=== PATIENT | female | born 1995 | race Caucasian/White ===

== ENCOUNTER 2019-01-21 09:34 | Emergency (ER) | payer SELFPAY ==
[2019-01-21] MEDS ORDERED: ONDANSETRON HCL INJ/PF 4 MG/2 ML SDV IV ONE (10:13)
[2019-01-21] MEDS ORDERED: NORMAL SALINE 1000 ML 1,000 ML IV ONE ×2 (10:13→11:04)
--- NOTE | 2019-01-21 10:15 | ER Document Report ---
ED Medical Screen (RME) - General Chief Complaint: Nausea/Vomiting Stated Complaint: VOMITING Time Seen by Provider: 01/21/19 09:52 TRAVEL OUTSIDE OF THE [place] IN LAST 30 DAYS: No - HPI Notes: 01/21/19 10:13 23-year-old female to the emergency department with complaints of nausea and vomiting that began last night. She states that this feels like her hyperemesis and prior pregnancies. She states that she is about 18 weeks . She has not had any at home antiemetics she just recently moved and does not have an WIRE STRETCHER. She states she was last in the emergency department for her hyperemesis about 5 weeks ago. She states that she had been sick yesterday but was able to hold something down last night but then she has not been able to hold anything down since. She states that typically her there are IV Zofran or IV Phenergan helps her. Denies any vaginal bleeding or lower abdominal cramping. Denies any urinary complaints. I performed a medical screening exam on the patient. I have ordered basic labs as well as fluids and Zofran. We will initiate her care and will have her followed and managed by main side provider. Past Medical History - Social History Frequency of alcohol use: None Drug Abuse: None Physical Exam - Vital signs Vitals: Temp Pulse Resp BP Pulse Ox 98.1 F 98 16 128/73 H 96 01/21/19 09:49 01/21/19 09:49 01/21/19 09:49 01/21/19 09:49 01/21/19 09:49 Course - Vital Signs Vital signs: Temp Pulse Resp BP Pulse Ox 98.1 F 98 16 128/73 H 96 01/21/19 09:49 01/21/19 09:49 01/21/19 09:49 01/21/19 09:49 01/21/19 09:49
[2019-01-21 10:59] LABS: ABSOLUTE LYMPHOCYTES (AUTO) 1.8 10^3/uL (0.5-4.7); ABSOLUTE MONOCYTES (AUTO) 0.6 10^3/uL (0.1-1.4); ABSOLUTE NEUT (AUTO) 11.6 10^3/uL (1.7-8.2); BASOPHILS % (AUTO) 0.1 % (0-2); EOSINOPHILS % (AUTO) 0.1 % (0-6); HEMATOCRIT 39.1 % (36.0-47.0); HEMOGLOBIN 13.3 g/dL (12.0-15.5); MEAN CORPUSCULAR HEMOGLOBIN 29.4 pg (27.0-33.4); MEAN CORPUSCULAR VOLUME 87 fl (80-97); MONOCYTES % (AUTO) 4.6 % (3-13); PLATELET COUNT 294 10^3/uL (150-450); RED BLOOD COUNT 4.52 10^6/uL (3.72-5.28); RED CELL DISTRIBUTION WIDTH 13.9 % (11.5-14.0); SEGMENTED NEUTROPHILS % (AUTO) 82.2 % (42-78); TOTAL CELLS COUNTED % (AUTO) 100 %; WHITE BLOOD COUNT 14.1 10^3/uL (4.0-10.5)
[2019-01-21 11:02] LABS: APPEARANCE,URINE SLIGHTLY-CLOUDY; BILIRUBIN,URINE NEGATIVE (NEGATIVE); COLOR,URINE YELLOW; GLUCOSE, URINE NEGATIVE (NEGATIVE); KETONES,URINE 20 mg/dL (NEGATIVE); LEUKOCYTE ESTERASE,URINE NEGATIVE (NEGATIVE); NITRITE,URINE NEGATIVE (NEGATIVE); PROTEIN,URINE NEGATIVE (NEGATIVE); URINE SPECIFIC GRAVITY 1.023; UROBILINOGEN,URINE NEGATIVE mg/dL (<2.0)
[2019-01-21] MEDS ORDERED: PROMETHAZINE HCL INJ 25 MG/1 ML VIAL IV ONE (11:04)
[2019-01-21 11:24] LABS: ALBUMIN 4.2 g/dL (3.5-5.0); ALKALINE PHOSPHATASE 82 U/L (38-126); ANION GAP 12 (5-19); ASPARTATE AMINO TRANSFERASE 18 U/L (14-36); BILIRUBIN,DIRECT 0.1 mg/dL (0.0-0.4); BILIRUBIN,TOTAL 0.4 mg/dL (0.2-1.3); BLOOD UREA NITROGEN 6 mg/dL (7-20); CALCIUM 9.7 mg/dL (8.4-10.2); CARBON DIOXIDE 25 mmol/L (22-30); CHLORIDE 102 mmol/L (98-107); GLUCOSE 90 mg/dL (75-110); TOTAL PROTEIN 7.5 g/dL (6.3-8.2)
--- NOTE | 2019-01-21 12:47 | ER Document Report ---
ED General - General Chief Complaint: Nausea/Vomiting Stated Complaint: VOMITING Time Seen by Provider: 01/21/19 09:52 Mode of Arrival: Ambulatory Information source: Patient TRAVEL OUTSIDE OF THE [place] IN LAST 30 DAYS: No - HPI Notes: Patient complains of severe nausea and vomiting. She states that she has a history of hyperemesis with previous pregnancies. She states that she is currently 10 weeks and is having an episode today of severe vomiting. She states she is unable to keep anything down. The nausea and vomiting is worse with eating or drinking and nothing is really making it better. She does feel somewhat lightheaded dizzy and has a headache. No vaginal discharge or bleeding or cramping. No abdominal pain. The symptoms have been severe. They are constant. There is no radiation of the symptoms. - Related Data Allergies/Adverse Reactions: No Known Allergies Allergy (Verified 01/21/19 10:58) Past Medical History - General Information source: Patient - Social History Smoking Status: Never Smoker Frequency of alcohol use: None Drug Abuse: None Family History: Reviewed & Not Pertinent Patient has suicidal ideation: No Patient has homicidal ideation: No Review of Systems - Review of Systems Constitutional: Malaise, Weakness. denies: Chills, Fever Cardiovascular: denies: Chest pain, Palpitations Respiratory: denies: Cough, Short of breath Gastrointestinal: Nausea, Vomiting. denies: Abdominal pain, Diarrhea -: Yes All other systems reviewed and negative Physical Exam - Vital signs Vitals: Temp Pulse Resp BP Pulse Ox 98.1 F 98 16 128/73 H 96 01/21/19 09:49 01/21/19 09:49 01/21/19 09:49 01/21/19 09:49 01/21/19 09:49 Interpretation: Normal - General General appearance: Appears well, Alert - HEENT Head: Normocephalic, Atraumatic Eyes: Normal Pupils: PERRL - Respiratory Respiratory status: No respiratory distress Chest status: Nontender Breath sounds: Normal Chest palpation: Normal - Cardiovascular Rhythm: Regular Heart sounds: Normal auscultation Murmur: No - Abdominal Inspection: Normal Distension: No distension Bowel sounds: Normal Tenderness: Nontender Organomegaly: No organomegaly, Other - heart tones 182 - Back Back: Normal, Nontender - Extremities General upper extremity: Normal inspection, Nontender, Normal color, Normal ROM, Normal temperature General lower extremity: Normal inspection, Nontender, Normal color, Normal ROM, Normal temperature, Normal weight bearing. No: Arthur's sign - Neurological Neuro grossly intact: Yes Cognition: Normal Orientation: AAOx4 Juvencio Coma Scale Eye Opening: Spontaneous Ju[place]io Coma Scale Verbal: Oriented [place] Coma Scale Motor: Obeys Commands Juvencio Coma Scale Total: 15 Speech: Normal Motor strength normal: LUE, RUE, LLE, RLE Sensory: Normal - Psychological Associated symptoms: Normal affect, Normal mood - Skin Skin Temperature: Warm Skin Moisture: Dry Skin Color: Normal Course - Re-evaluation Re-evalutation: 01/21/19 12:44 Patient feels better after antiemetics. She also received 2 L of fluid. She is tolerating p.o.'s. I will discharge patient home to follow-up with her primary care physician as well as discharge her home with some antiemetics. - Vital Signs Vital signs: Temp Pulse Resp BP Pulse Ox 98.1 F 98 16 128/73 H 96 01/21/19 09:49 01/21/19 09:49 01/21/19 09:49 01/21/19 09:49 01/21/19 09:49 - Laboratory Result Diagrams: 01/21/19 10:25 01/21/19 10:25 Laboratory results interpreted by me: 01/21/19 01/21/19 01/21/19 10:25 10:25 10:25 WBC 14.1 H Absolute Neuts (auto) 11.6 H Seg Neutrophils % 82.2 H BUN 6 L Urine Ketones 20 H Discharge - Discharge Clinical Impression: Hyperemesis gravidarum Condition: Stable Disposition: HOME, SELF-CARE Instructions: Antinausea Medication ([facility]), Intravenous (IV) Fluids ([facility]), Vomiting ([facility]) Additional Instructions: Please call your [employer] provider as soon as possible to arrange follow-up Prescriptions: Promethazine HCl [Phenergan 25 mg Tablet] 1 tab PO Q6H PRN #15 tablet PRN Reason: Forms: Return to Work
[2019-01-21 13:11] VITALS: BP 112/47
== END 2019-01-21 13:11 | disposition home or self-care (01) ==
LOC: ER 09:34
DX: O21.0 Mild hyperemesis gravidarum (principal); R53.81 Other malaise; R53.1 Weakness; Z3A.10 10 weeks gestation of pregnancy
CPT/HCPCS: 36415; 83735; 85025; 80053; 81001; J2550; J2405; J7030; 96361; 96374; 96375; 99284

== ENCOUNTER 2019-02-09 10:26 | Outpatient (CLI) | payer MEDICAID ==
[2019-02-09 11:23] LABS: APPEARANCE,URINE CLEAR; BILIRUBIN,URINE NEGATIVE (NEGATIVE); COLOR,URINE YELLOW; GLUCOSE, URINE NEGATIVE (NEGATIVE); KETONES,URINE NEGATIVE (NEGATIVE); LEUKOCYTE ESTERASE,URINE NEGATIVE (NEGATIVE); NITRITE,URINE NEGATIVE (NEGATIVE); PROTEIN,URINE NEGATIVE (NEGATIVE); URINE SPECIFIC GRAVITY 1.019; UROBILINOGEN,URINE NEGATIVE mg/dL (<2.0)
[2019-02-09 11:58] LABS: URINE AMPHETAMINES SCREEN NEGATIVE; URINE BARBITURATES SCREEN NEGATIVE; URINE BENZODIAZEPINES SCREEN NEGATIVE; URINE COCAINE SCREEN NEGATIVE; URINE MARIJUANA (THC) SCREEN NEGATIVE; URINE METHADONE SCREEN NEGATIVE; URINE PHENCYCLIDINE SCREEN NEGATIVE
--- NOTE | 2019-02-09 14:58 | RADIOLOGY REPORT (SQ) ---
EXAM DESCRIPTION: U/S OB LIMITED COMPLETED DATE/TIME: 02/09/2019 2:30 pm REASON FOR STUDY: r/o PTL COMPARISON: None. TECHNIQUE: Limited transabdominal grayscale ultrasound for evaluation of specific requested obstetri marcia parameters. LIMITATIONS: None. FINDINGS: CERVICAL LENGTH: 3.6 cm Closed. LV P: 4 cm. FHR: 145 beats per minute. PRESENTATION: Cephalic. PLACENTA: Posterior, grade 1. ANATOMY: Not assessed OTHER: Gestation of 21 weeks 3 days. IMPRESSION: LIMITED OBSTETRICAL ULTRASOUND WITH MEASURED PARAMETERS DELINEATED ABOVE. Trimester of : Second trimester - 13 weeks 1 day to 27 weeks 6 days. TECHNICAL DOCUMENTATION: JOB ID: [id number] [employer]- All Rights Reserved Reading location - IP/workstation name: [email or web address]
== END 2019-02-09 14:47 | disposition home or self-care (01) ==
LOC: LC 10:26
PROVIDERS: ATTEND Obstetrics & Gynecology
PROC: 4A1HXCZ Monitoring of Products of Conception, Cardiac Rate, External Approach (ICD-10-PCS; principal; 2019-02-09)
DX: O99.282 Endocrine, nutritional and metabolic diseases complicating pregnancy, second trimester (principal); E86.0 Dehydration; Z3A.21 21 weeks gestation of pregnancy
CPT/HCPCS: 76815; 80307; 81001

== ENCOUNTER 2019-06-05 11:52 | Outpatient (CLI) | payer MEDICAID ==
[2019-06-05 12:34] LABS: RBCS (WET MOUNT) FEW RBCS SEEN; T.VAGINALIS (WET MOUNT) NO TRICHOMONAS SEEN; WBCS (WET MOUNT) 2+ WBCS SEEN; YEAST (WET MOUNT) YEAST SEEN
[2019-06-05 12:35] LABS: BACTERIA (WET MOUNT) 3+ BACTERIA SEEN; EPITHELIALS (WET MOUNT) 3+ EPITHELIALS SEEN
[2019-06-05 12:40] LABS: APPEARANCE,URINE SLIGHTLY-CLOUDY; BILIRUBIN,URINE NEGATIVE (NEGATIVE); COLOR,URINE YELLOW; GLUCOSE, URINE NEGATIVE (NEGATIVE); KETONES,URINE NEGATIVE (NEGATIVE); LEUKOCYTE ESTERASE,URINE LARGE (NEGATIVE); NITRITE,URINE NEGATIVE (NEGATIVE); PROTEIN,URINE 30 mg/dL (NEGATIVE); URINE SPECIFIC GRAVITY 1.015; UROBILINOGEN,URINE NEGATIVE mg/dL (<2.0)
[2019-06-05 13:12] LABS: URINE AMPHETAMINES SCREEN NEGATIVE; URINE BARBITURATES SCREEN NEGATIVE; URINE BENZODIAZEPINES SCREEN NEGATIVE; URINE COCAINE SCREEN NEGATIVE; URINE MARIJUANA (THC) SCREEN NEGATIVE; URINE METHADONE SCREEN NEGATIVE; URINE PHENCYCLIDINE SCREEN NEGATIVE
== END 2019-06-05 13:10 | disposition home or self-care (01) ==
LOC: LC 11:52
PROVIDERS: ATTEND Obstetrics & Gynecology
PROC: 4A1HXCZ Monitoring of Products of Conception, Cardiac Rate, External Approach (ICD-10-PCS; principal; 2019-06-05)
DX: O98.813 Other maternal infectious and parasitic diseases complicating pregnancy, third trimester (principal); B37.9 Candidiasis, unspecified; Z3A.37 37 weeks gestation of pregnancy
CPT/HCPCS: 59025; 80307; 81005; 84112; 87210

== ENCOUNTER 2019-06-15 09:38 | Outpatient (CLI) | payer MEDICAID ==
[2019-06-15 10:08] LABS: APPEARANCE,URINE CLOUDY; BILIRUBIN,URINE NEGATIVE (NEGATIVE); COLOR,URINE YELLOW; GLUCOSE, URINE NEGATIVE (NEGATIVE); KETONES,URINE NEGATIVE (NEGATIVE); LEUKOCYTE ESTERASE,URINE MODERATE (NEGATIVE); NITRITE,URINE NEGATIVE (NEGATIVE); PROTEIN,URINE 30 mg/dL (NEGATIVE); URINE SPECIFIC GRAVITY 1.017; UROBILINOGEN,URINE NEGATIVE mg/dL (<2.0)
[2019-06-15 10:28] LABS: URINE AMPHETAMINES SCREEN NEGATIVE; URINE BARBITURATES SCREEN NEGATIVE; URINE BENZODIAZEPINES SCREEN NEGATIVE; URINE COCAINE SCREEN NEGATIVE; URINE MARIJUANA (THC) SCREEN NEGATIVE; URINE METHADONE SCREEN NEGATIVE; URINE PHENCYCLIDINE SCREEN NEGATIVE
--- NOTE | 2019-06-15 10:28 | Non Stress Test Report ---
Non Stress Test Datetime Report Generated by CPN: 06/15/2019 10:28 DEMOGRAPHIC EGA NST: 39.3 EGA NST: 38.0 INDICATION Indication for Study (NST) Other: false labor Indication for Study (NST) Other: iup 38 weeks labor check protocol MONITORING Monitor Explained: Monitor Explained; Test Explained; Patient Verbalized Understanding Monitor Explained: Monitor Explained; Test Explained; Patient Verbalized Understanding Time on Monitor: 06/15/2019 09:58 Time on Monitor: 06/05/2019 12:10 Time off Monitor: 06/15/2019 10:27 Time off Monitor: 06/05/2019 12:36 NST Duration: 29 NST Duration: 26 NST INTERVENTIONS NST Interventions: PO Hydration; Reposition Patient NST Interventions: None Physician Notified NST: NRobertson CNM Physician Notified NST: J Mcclure CNM BABY A: [id number] BABY A Movement : Present Movement : Present Contraction Frequency : none Contraction Frequency : 0 FHR Baseline : 125 FHR Baseline : 125 Accelerations : 15X15 Accelerations : 15X15 Decelerations : None Decelerations : None Variability : Moderate 6-25bpm Variability : Moderate 6-25bpm NST Review: Meets Criteria for Reactive NST NST Review: Meets Criteria for Reactive NST NST Review and Verified By : Paulo Campbell RN NST Review and Verified By : Camille Singh RNC NST Results: Reactive NST Results: Reactive NST REPORT Report Trigger: Send Report
== END 2019-06-15 10:39 | disposition home or self-care (01) ==
LOC: LC 09:38
PROVIDERS: ATTEND Student in an Organized Health Care Education/Training Program
PROC: 4A1HXCZ Monitoring of Products of Conception, Cardiac Rate, External Approach (ICD-10-PCS; principal; 2019-06-15)
DX: O47.1 False labor at or after 37 completed weeks of gestation (principal); Z3A.38 38 weeks gestation of pregnancy
CPT/HCPCS: 59025; 80307; 81005

== ENCOUNTER 2019-06-25 19:17 | Inpatient (IN) | payer MEDICAID ==
[2019-06-25 20:46] LABS: ABSOLUTE LYMPHOCYTES (AUTO) 2.4 10^3/uL (0.5-4.7); ABSOLUTE MONOCYTES (AUTO) 0.7 10^3/uL (0.1-1.4); ABSOLUTE NEUT (AUTO) 10.6 10^3/uL (1.7-8.2); BASOPHILS % (AUTO) 0.3 % (0-2); EOSINOPHILS % (AUTO) 0.3 % (0-6); HEMATOCRIT 32.8 % (36.0-47.0); HEMOGLOBIN 11.2 g/dL (12.0-15.5); LYMPHOCYTES % (AUTO) 17.3 % (13-45); MEAN CORPUSCULAR HEMOGLOBIN 27.5 pg (27.0-33.4); MEAN CORPUSCULAR HGB CONC 34.2 g/dL (32.0-36.0); MEAN CORPUSCULAR VOLUME 80 fl (80-97); MONOCYTES % (AUTO) 5.3 % (3-13); PLATELET COUNT 346 10^3/uL (150-450); RED BLOOD COUNT 4.09 10^6/uL (3.72-5.28); RED CELL DISTRIBUTION WIDTH 14.8 % (11.5-14.0); SEGMENTED NEUTROPHILS % (AUTO) 76.8 % (42-78); TOTAL CELLS COUNTED % (AUTO) 100 %; WHITE BLOOD COUNT 13.8 10^3/uL (4.0-10.5)
[2019-06-25 21:21] LABS: APPEARANCE,URINE SLIGHTLY-CLOUDY; BILIRUBIN,URINE NEGATIVE (NEGATIVE); COLOR,URINE YELLOW; GLUCOSE, URINE NEGATIVE (NEGATIVE); KETONES,URINE NEGATIVE (NEGATIVE); LEUKOCYTE ESTERASE,URINE TRACE (NEGATIVE); NITRITE,URINE NEGATIVE (NEGATIVE); PROTEIN,URINE NEGATIVE (NEGATIVE); URINE SPECIFIC GRAVITY 1.017; UROBILINOGEN,URINE NEGATIVE mg/dL (<2.0)
[2019-06-25 21:33] LABS: URINE AMPHETAMINES SCREEN NEGATIVE; URINE BARBITURATES SCREEN NEGATIVE; URINE BENZODIAZEPINES SCREEN NEGATIVE; URINE COCAINE SCREEN NEGATIVE; URINE MARIJUANA (THC) SCREEN NEGATIVE; URINE METHADONE SCREEN NEGATIVE; URINE PHENCYCLIDINE SCREEN NEGATIVE
[2019-06-25 21:46] VITALS: BP 132/78
--- NOTE | 2019-06-26 14:09 | PDOC DISCHARGE SUMMARY ---
Impression - Admit/DC Date/PCP Admission Date/Primary Care Provider: 06/25/19 19:17 CAROL DEVI MD Discharge Date: 06/26/19 - Discharge Diagnosis (1) Carrier or suspected carrier of group B Streptococcus Is this a current diagnosis for this admission?: Yes (2) Post-term , 40-42 weeks of gestation Is this a current diagnosis for this admission?: Yes - Additional Information Resuscitation Status: Full Code Discharge Diet: Regular Discharge Activity: Balance Activity w/Rest Referrals: [facility] [Provider Group] Home Medications: Vit,Calc76/Iron/Folic [Prenatabs Rx Tablet] 1 each PO DAILY 06/05/19 Additional Information: Pt to return in AM for IOL, counselling to call at 5pm and to check road conditions before driving in. History of Present Illiness History of Present Illness: ERIN PERALTA is a 24 year old female was brought in for elective IOL that was supposed to be started by this am, also d/t predicted road conditions for this am. IUP at 41 wks G2pP1. Physical Exam Vital Signs: Temp Pulse Resp BP Pulse Ox 97 15 132/78 H 100 06/25/19 20:19 06/25/19 20:19 06/25/19 20:19 06/25/19 20:19 General appearance: PRESENT: no acute distress Results Laboratory Results: WBC 13.8 10^3/uL (4.0-10.5) H 06/25/19 20:19 RBC 4.09 10^6/uL (3.72-5.28) 06/25/19 20:19 Hgb 11.2 g/dL (12.0-15.5) L 06/25/19 20:19 Hct 32.8 % (36.0-47.0) L 06/25/19 20:19 MCV 80 fl (80-97) 06/25/19 20:19 MCH 27.5 pg (27.0-33.4) 06/25/19 20:19 MCHC 34.2 g/dL (32.0-36.0) 06/25/19 20:19 RDW 14.8 % (11.5-14.0) H 06/25/19 20:19 Plt Count 346 10^3/uL (150-450) 06/25/19 20:19 Lymph % (Auto) 17.3 % (13-45) 06/25/19 20:19 [place] % (Auto) 5.3 % (3-13) 06/25/19 20:19 Eos % (Auto) 0.3 % (0-6) 06/25/19 20:19 Baso % (Auto) 0.3 % (0-2) 06/25/19 20:19 Absolute Neuts (auto) 10.6 10^3/uL (1.7-8.2) H 06/25/19 20:19 Absolute Lymphs (auto) 2.4 10^3/uL (0.5-4.7) 06/25/19 20:19 Absolute Monos (auto) 0.7 10^3/uL (0.1-1.4) 06/25/19 20:19 Absolute Eos (auto) 0.0 10^3/uL (0.0-0.6) 06/25/19 20:19 Absolute Basos (auto) 0.0 10^3/uL (0.0-0.2) 06/25/19 20:19 Seg Neutrophils % 76.8 % (42-78) 06/25/19 20:19 Urine Color YELLOW 06/25/19 20:45 Urine Appearance SLIGHTLY-CLOUDY 06/25/19 20:45 Urine pH 6.0 (5.0-9.0) 06/25/19 20:45 Ur Specific [place] 1.017 06/25/19 20:45 Urine Protein NEGATIVE mg/dL (NEGATIVE) 06/25/19 20:45 Urine Glucose (UA) NEGATIVE mg/dL (NEGATIVE) 06/25/19 20:45 Urine Ketones NEGATIVE mg/dL (NEGATIVE) 06/25/19 20:45 Urine Blood NEGATIVE (NEGATIVE) 06/25/19 20:45 Urine Nitrite NEGATIVE (NEGATIVE) 06/25/19 20:45 Urine Bilirubin NEGATIVE (NEGATIVE) 06/25/19 20:45 Urine Urobilinogen NEGATIVE mg/dL (<2.0) 06/25/19 20:45 Ur Leukocyte Esterase TRACE (NEGATIVE) H 06/25/19 20:45 Urine WBC (Auto) 8 /HPF 06/25/19 20:45 Urine RBC (Auto) 3 /HPF 06/25/19 20:45 Squamous Epi Cells Auto 13 /HPF 06/25/19 20:45 Urine Mucus (Auto) RARE /LPF 06/25/19 20:45 Urine Ascorbic Acid NEGATIVE (NEGATIVE) 06/25/19 20:45 Urine Opiates Screen NEGATIVE 06/25/19 20:45 Urine Methadone Screen NEGATIVE 06/25/19 20:45 Ur Barbiturates Screen NEGATIVE 06/25/19 20:45 Ur Phencyclidine Scrn NEGATIVE 06/25/19 20:45 Ur Amphetamines Screen NEGATIVE 06/25/19 20:45 U Benzodiazepines Scrn NEGATIVE 06/25/19 20:45 Urine Cocaine Screen NEGATIVE 06/25/19 20:45 U Marijuana (THC) Screen NEGATIVE 06/25/19 20:45 RPR NONREACTIVE (NONREACTIVE) 06/25/19 20:19 Blood Type O NEGATIVE 06/25/19 20:19 Antibody Screen POSITIVE 06/25/19 20:19 Antibody Identification RHOGAM INDUCED ANTI-D 06/25/19 20:19 Plan Plan of Treatment: She will return in the AM for IOL Time Spent: Less than 30 Minutes - NST done on L&D prior to leaving Stroke Is this a Stroke Patient?: No Stroke Pt being discharged on Anti-thrombolytic therapy?: No Reason(s) for not prescribing Anti-thrombolytic therapy:: Not indicated Acute Heart Failure - Is this a Heart Failure Patient?: No
== END 2019-06-26 14:03 | disposition home or self-care (01) | DRG 833 ==
LOC: 2S 19:17 → UNDODISIN 06-26 12:00 → LR 06-26 13:55
PROVIDERS: ADMIT Student in an Organized Health Care Education/Training Program; ATTEND Student in an Organized Health Care Education/Training Program
DX: O48.0 Post-term pregnancy (principal); O99.820 Streptococcus B carrier state complicating pregnancy; Z53.8 Procedure and treatment not carried out for other reasons; Z3A.41 41 weeks gestation of pregnancy
CPT/HCPCS: 36415; 80307; 81001; 85025; 86592; 86850; 86870; 86900; 86901

== ENCOUNTER 2019-06-27 06:44 | Inpatient (IN) | payer MEDICAID ==
[2019-06-27] MEDS ORDERED: PENICILLIN G POTASSIUM 5,000,000 UNIT in DEXTROSE 5%-WATER 100 ML IV ONE (07:16)
[2019-06-27] MEDS ORDERED: OXYTOCIN/NORMAL SALINE 20 UNIT/1,000 ML RTUINJ IV PRN ×2 (07:18→17:19)
[2019-06-27 07:41] LABS: APPEARANCE,URINE CLOUDY; BILIRUBIN,URINE NEGATIVE (NEGATIVE); COLOR,URINE YELLOW; GLUCOSE, URINE NEGATIVE (NEGATIVE); KETONES,URINE NEGATIVE (NEGATIVE); LEUKOCYTE ESTERASE,URINE TRACE (NEGATIVE); NITRITE,URINE NEGATIVE (NEGATIVE); PROTEIN,URINE NEGATIVE (NEGATIVE); URINE SPECIFIC GRAVITY 1.015; UROBILINOGEN,URINE NEGATIVE mg/dL (<2.0)
[2019-06-27] MEDS ORDERED: PENICILLIN G-K 5 MILLION UNIT VIAL ONE (07:55)
[2019-06-27] MEDS: RINGERS SOLUTION,LACTATED 1,000 ML IV PRN ×2 (08:00→15:24)
[2019-06-27 08:02] LABS: URINE AMPHETAMINES SCREEN NEGATIVE; URINE BARBITURATES SCREEN NEGATIVE; URINE BENZODIAZEPINES SCREEN NEGATIVE; URINE COCAINE SCREEN NEGATIVE; URINE MARIJUANA (THC) SCREEN NEGATIVE; URINE METHADONE SCREEN NEGATIVE; URINE PHENCYCLIDINE SCREEN NEGATIVE
[2019-06-27] MEDS ORDERED: OXYTOCIN/NORMAL SALINE 20 UNIT/1,000 ML RTUINJ ONE (08:04)
[2019-06-27 08:47] LABS: ABSOLUTE BASOPHILS # (AUTO) 0.1 10^3/uL (0.0-0.2); ABSOLUTE LYMPHOCYTES (AUTO) 2.5 10^3/uL (0.5-4.7); ABSOLUTE MONOCYTES (AUTO) 0.9 10^3/uL (0.1-1.4); ABSOLUTE NEUT (AUTO) 10.1 10^3/uL (1.7-8.2); BASOPHILS % (AUTO) 0.7 % (0-2); EOSINOPHILS % (AUTO) 0.2 % (0-6); HEMATOCRIT 34.2 % (36.0-47.0); HEMOGLOBIN 11.6 g/dL (12.0-15.5); LYMPHOCYTES % (AUTO) 18.3 % (13-45); MEAN CORPUSCULAR HEMOGLOBIN 27.3 pg (27.0-33.4); MEAN CORPUSCULAR VOLUME 80 fl (80-97); MONOCYTES % (AUTO) 6.8 % (3-13); RED BLOOD COUNT 4.26 10^6/uL (3.72-5.28); TOTAL CELLS COUNTED % (AUTO) 100 %; WHITE BLOOD COUNT 13.7 10^3/uL (4.0-10.5)
[2019-06-27 09:13] LABS: PLATELET COUNT 307 10^3/uL (150-450)
[2019-06-27] MEDS: PENICILLIN G POTASSIUM 2,500,000 UNIT in DEXTROSE 5%-WATER 50 ML IV SCH ×3 (12:04→21:35)
[2019-06-27] MEDS ORDERED: LIDOCAINE 1% INJ-PF (10 MG/ML) 30 ML SDV ONE (13:16)
[2019-06-27] MEDS ORDERED: MISOPROSTOL 0.2 MG TABLET ONE (13:16)
[2019-06-27] MEDS ORDERED: BUPIVACAINE HCL 0.25 % INJ/PF (2.5 MG/1 ML) 30 ML VIAL ONE (13:18)
[2019-06-27] MEDS ORDERED: FENTANYL/BUPIVACAINE/NS/PF 300 MCG/150 ML RTUINJ EPI ONE (13:18)
[2019-06-27] MEDS ORDERED: EPHEDRINE SULFATE INJ 50 MG/1 ML AMPULE ONE (13:18)
[2019-06-27] MEDS ORDERED: MEASLES,MUMPS&RUBELLA VACC/PF 0.5 ML VIAL SUBCUT PRN (17:19)
[2019-06-27] MEDS ORDERED: NA PHOS,M-B/NA PHOS,DI-BA (ADULT) 133 ML ENEMA PR PRN (17:19)
[2019-06-27] MEDS ORDERED: ACETAMINOPHEN 650 MG SUPP.RECT PR PRN (17:19)
[2019-06-27] MEDS ORDERED: PROMETHAZINE HCL 25 MG TABLET PO PRN (17:19)
[2019-06-27] MEDS ORDERED: BENZOCAINE/MENTHOL AEROSOL SPRAY 56 ML TOP PRN (17:19)
[2019-06-27] MEDS ORDERED: DIPHENHYDRAMINE HCL 25 MG CAPSULE PO PRN (17:19)
[2019-06-27] MEDS ORDERED: MAGNESIUM HYDROXIDE SUSP 30 ML UDCUP PO PRN (17:19)
[2019-06-27] MEDS ORDERED: PROMETHAZINE HCL INJ 25 MG/1 ML VIAL IV PRN (17:19)
[2019-06-27] MEDS ORDERED: ZOLPIDEM TARTRATE 5 MG TABLET PO PRN (17:19)
[2019-06-27] MEDS ORDERED: DIBUCAINE 1% OINTMENT 28 GM TP PRN (17:19)
[2019-06-27] MEDS ORDERED: PROMETHAZINE HCL 25 MG SUPP.RECT PR PRN (17:19)
[2019-06-27] MEDS ORDERED: ACETAMINOPHEN WITH CODEINE #3 TABLET PO PRN ×2 (17:19)
[2019-06-27] MEDS ORDERED: PSEUDOEPHEDRINE HCL 30 MG TABLET PO PRN (17:19)
[2019-06-27] MEDS ORDERED: DIPH/PERTUSS(ACELL)/TETANUS VAC/PF 0.5 ML SYR (>=10YO) IM PRN (17:19)
[2019-06-27] MEDS ORDERED: GLYCERIN/WITCH HAZEL LEAF 1 EACH MED..WIPE TP PRN (17:19)
[2019-06-27] MEDS ORDERED: FENTANYL CITRATE INJ/PF 100 MCG/2 ML AMPUL ONE (18:25)
[2019-06-27] MEDS: DOCUSATE SODIUM 100 MG CAPSULE PO SCH (21:34)
[2019-06-27] MEDS: FERROUS SULFATE 325 MG TABLET PO SCH (21:34)
[2019-06-27] MEDS: IBUPROFEN 800 MG TABLET PO SCH (22:13)
[2019-06-27] MEDS: FAMOTIDINE 20 MG TABLET PO SCH (22:13)
[2019-06-28] MEDS: IBUPROFEN 800 MG TABLET PO SCH ×4 (06:07→22:08)
[2019-06-28 07:19] LABS: HEMATOCRIT 30.1 % (36.0-47.0); HEMOGLOBIN 10.1 g/dL (12.0-15.5); MEAN CORPUSCULAR HEMOGLOBIN 27.2 pg (27.0-33.4); MEAN CORPUSCULAR HGB CONC 33.5 g/dL (32.0-36.0); MEAN CORPUSCULAR VOLUME 81 fl (80-97); PLATELET COUNT 332 10^3/uL (150-450); RED BLOOD COUNT 3.71 10^6/uL (3.72-5.28); RED CELL DISTRIBUTION WIDTH 15.3 % (11.5-14.0); WHITE BLOOD COUNT 15.9 10^3/uL (4.0-10.5)
[2019-06-28] MEDS: SENNOSIDES/DOCUSATE 8.6-50 MG 1 EACH TABLET PO SCH (10:07)
[2019-06-28] MEDS: FERROUS SULFATE 325 MG TABLET PO SCH ×2 (10:07→18:20)
[2019-06-28] MEDS: DOCUSATE SODIUM 100 MG CAPSULE PO SCH ×2 (10:07→18:20)
[2019-06-28] MEDS: FAMOTIDINE 20 MG TABLET PO SCH ×2 (10:07→22:08)
[2019-06-28] MEDS: PRENATAL VITAMIN W DHA CAPSULE PO SCH (10:08)
--- NOTE | 2019-06-28 10:43 | PDOC PROGRESS REPORT ---
Subjective-OB Progress Note for:: 06/28/19 Subjective: Pt doing well, no complaints. She reports light bleeding, reg diet and voiding without difficulty. Physical Exam (OB) Vital Signs: Temp Pulse Resp BP Pulse Ox 98.1 F 81 16 124/69 99 06/28/19 07:45 06/28/19 07:45 06/28/19 07:45 06/28/19 07:45 06/28/19 07:45 Intake & Output 06/27/19 06/28/19 06/29/19 06:59 06:59 06:59 Intake Total 1000 Balance 1000 Weight 82.3 kg - General General Appearance: Appears well - Lochia Lochia Amount: Small 10-25 ml Lochia Color: Rubra/Red - Abdomen Description: Soft Hernia Present: No Fundal Description: Firm, Midline Fundal Height: u/u - u/2 Objective-Diagnostic Laboratory: 06/28/19 06:28 06/27/19 06/28/19 06/28/19 07:48 06:28 06:28 WBC 15.9 H RBC 3.71 L Hgb 10.1 L Hct 30.1 L MCV 81 MCH 27.2 MCHC 33.5 RDW 15.3 H Plt Count 332 Blood Type O NEGATIVE O NEGATIVE Antibody Screen POSITIVE Assessment and Plan(PN) - Assessment and Plan (1) (spontaneous vaginal delivery) Is this a current diagnosis for this admission?: Yes (2) Carrier or suspected carrier of group B Streptococcus Is this a current diagnosis for this admission?: Yes (3) Post-term , 40-42 weeks of gestation Is this a current diagnosis for this admission?: Yes - Time Spent with Patient Time with patient: Less than 15 minutes Medications reviewed and adjusted accordingly: Yes - Disposition Anticipated Discharge: Home Within: within 24 hours
[2019-06-29] MEDS: IBUPROFEN 800 MG TABLET PO SCH (06:48)
[2019-06-29] MEDS: PRENATAL VITAMIN W DHA CAPSULE PO SCH (09:42)
[2019-06-29] MEDS: DOCUSATE SODIUM 100 MG CAPSULE PO SCH (09:42)
[2019-06-29] MEDS: FAMOTIDINE 20 MG TABLET PO SCH (09:42)
[2019-06-29] MEDS: SENNOSIDES/DOCUSATE 8.6-50 MG 1 EACH TABLET PO SCH (09:42)
[2019-06-29] MEDS: FERROUS SULFATE 325 MG TABLET PO SCH (09:42)
[2019-06-29 11:31] VITALS: BP 113/71
--- NOTE | 2019-06-29 11:43 | PDOC DISCHARGE SUMMARY ---
Impression - Admit/DC Date/PCP Admission Date/Primary Care Provider: 06/27/19 06:44 CAROL DEVI MD Discharge Date: 06/29/19 - Discharge Diagnosis (1) (spontaneous vaginal delivery) Is this a current diagnosis for this admission?: Yes (2) Carrier or suspected carrier of group B Streptococcus Is this a current diagnosis for this admission?: Yes (3) Post-term , 40-42 weeks of gestation Is this a current diagnosis for this admission?: Yes - Additional Information Discharge Diet: Regular Discharge Activity: Balance Activity w/Rest, Pelvic Rest Referrals: CAROL DEVI MD [Primary Care Provider] - Prescriptions: Ibuprofen [Motrin 800 mg Tablet] 800 mg PO Q8HP PRN #60 tablet PRN Reason: Home Medications: Vit,Calc76/Iron/Folic [Prenatabs Rx Tablet] 1 each PO DAILY 06/05/19 Ibuprofen [Motrin 800 mg Tablet] 800 mg PO Q8HP PRN #60 tablet 06/29/19 HPI Gestational Age: 41.1 Reason(s) for Admission: Induction of Labor Procedures: NST Intrapartum Procedure(s): Spontaneous Vaginal Delivery Results Laboratory Results: WBC 15.9 10^3/uL (4.0-10.5) H 06/28/19 06:28 RBC 3.71 10^6/uL (3.72-5.28) L 06/28/19 06:28 Hgb 10.1 g/dL (12.0-15.5) L 06/28/19 06:28 Hct 30.1 % (36.0-47.0) L 06/28/19 06:28 MCV 81 fl (80-97) 06/28/19 06:28 MCH 27.2 pg (27.0-33.4) 06/28/19 06:28 MCHC 33.5 g/dL (32.0-36.0) 06/28/19 06:28 RDW 15.3 % (11.5-14.0) H 06/28/19 06:28 Plt Count 332 10^3/uL (150-450) 06/28/19 06:28 Lymph % (Auto) 18.3 % (13-45) 06/27/19 07:48 [place] % (Auto) 6.8 % (3-13) 06/27/19 07:48 Eos % (Auto) 0.2 % (0-6) 06/27/19 07:48 Baso % (Auto) 0.7 % (0-2) 06/27/19 07:48 Absolute Neuts (auto) 10.1 10^3/uL (1.7-8.2) H 06/27/19 07:48 Absolute Lymphs (auto) 2.5 10^3/uL (0.5-4.7) 06/27/19 07:48 Absolute Monos (auto) 0.9 10^3/uL (0.1-1.4) 06/27/19 07:48 Absolute Eos (auto) 0.0 10^3/uL (0.0-0.6) 06/27/19 07:48 Absolute Basos (auto) 0.1 10^3/uL (0.0-0.2) 06/27/19 07:48 Seg Neutrophils % 74.0 % (42-78) 06/27/19 07:48 Urine Color YELLOW 06/27/19 06:53 Urine Appearance CLOUDY 06/27/19 06:53 Urine pH 6.0 (5.0-9.0) 06/27/19 06:53 Ur Specific [place] 1.015 06/27/19 06:53 Urine Protein NEGATIVE mg/dL (NEGATIVE) 06/27/19 06:53 Urine Glucose (UA) NEGATIVE mg/dL (NEGATIVE) 06/27/19 06:53 Urine Ketones NEGATIVE mg/dL (NEGATIVE) 06/27/19 06:53 Urine Blood NEGATIVE (NEGATIVE) 06/27/19 06:53 Urine Nitrite NEGATIVE (NEGATIVE) 06/27/19 06:53 Urine Bilirubin NEGATIVE (NEGATIVE) 06/27/19 06:53 Urine Urobilinogen NEGATIVE mg/dL (<2.0) 06/27/19 06:53 Ur Leukocyte Esterase TRACE (NEGATIVE) H 06/27/19 06:53 Urine Ascorbic Acid NEGATIVE (NEGATIVE) 06/27/19 06:53 Urine Opiates Screen NEGATIVE 06/27/19 06:53 Urine Methadone Screen NEGATIVE 06/27/19 06:53 Ur Barbiturates Screen NEGATIVE 06/27/19 06:53 Ur Phencyclidine Scrn NEGATIVE 06/27/19 06:53 Ur Amphetamines Screen NEGATIVE 06/27/19 06:53 U Benzodiazepines Scrn NEGATIVE 06/27/19 06:53 Urine Cocaine Screen NEGATIVE 06/27/19 06:53 U Marijuana (THC) Screen NEGATIVE 06/27/19 06:53 RPR NONREACTIVE (NONREACTIVE) 06/27/19 07:48 Blood Type O NEGATIVE 06/28/19 06:28 Antibody Screen POSITIVE 06/27/19 07:48 Antibody Identification RHOGAM INDUCED ANTI-D 06/27/19 07:48 Screen NEGATIVE 06/28/19 06:28 Plan Goals: follow up in 4 weeks at [facility] for post check
--- NOTE | 2019-06-30 10:23 | Delivery Summary ---
Del Sum A-C Datetime Report Generated by CPN: 06/30/2019 10:23 DELIVERY PERSONNEL DELIVERY PERSONNEL: [id number] Delivery Doctor:: Mo Yuen MD Delivery Doctor:: Mo Yuen MD Labor and Delivery Nurse:: Jumana Morillo RNpullman conductor Nurse:: Lexus Lantigua RN Nursery Nurse:: Rebecca John RN Nursery Nurse:: Tara Weaver RN Supervisor Composing Room/MOLD CARPENTER: Lindsey Germain, EDGER TAILER MATERNAL INFORMATION Delivery Anesthesia: Epidural Delivery Anesthesia: Epidural Medications After Delivery: Pitocin Bolus-Please Comment Meds After Delivery Comment: Pitocin 20 units/1000 ml NSS Estimated Blood Loss (ml): 250 Delivery QBL: 150 Maternal Complications: None LABOR SUMMARY EDC: 06/19/2019 00:00 No. Babies in Womb: 1 Attempted: No Labor Anesthesia: Epidural LABOR INFORMATION Reason for Induction: Post Dates Onset of Labor: 06/27/2019 08:12 Complete Dilatation: 06/27/2019 16:43 Oxytocin: Induction Group B Beta Strep: positive Antibiotics # of Doses: 3 Antibiotics Time of Last Dose: 16:25 Name of Antibiotic Given: Penicillin Steroids Given: None Reason Steroids Not Administered: Not Applicable MEMBRANES Membranes Rupture Method: Artificial Rupture of Membranes: 06/27/2019 15:05 Length of Rupture (hr): 1.88 Amniotic Fluid Color: Clear Amniotic Fluid Amount: Moderate Amniotic Fluid Odor: Normal STAGES OF LABOR Stage 1 hr: 8 Stage 1 min: 31 Stage 2 hr: 0 Stage 2 min: 15 Stage 3 hr: 0 Stage 3 min: 7 Total Time in Labor hr: 8 Total Time in Labor min: 53 VAGINAL DELIVERY Episiotomy: None Laceration #1: None Laceration Extension #1: N/A Laceration #2: None Laceration Extension #2: N/A Laceration #3: None Laceration Extension #3: N/A Laceration Repair: Not Applicable Sponge Count Correct: Vaginal Sweep Performed Sharps Count Correct: Yes CSECTION DELIVERY Primary Indication: N/A Secondary Indication: N/A CSection Incidence: N/A Labor: N/A Elective: N/A CSection Incision: N/A BABY A INFORMATION Delivery Date/Time: 06/27/2019 16:58 Method of Delivery: Vaginal Nurse Controlled Delivery: No Born in Route : No : N/A Forceps: N/A Vacuum Extraction: N/A Shoulder Dystocia : No PRESENTATION/POSITION BABY A Presentation: Cephalic Cephalic Presentation: Vertex Vertex Position: Left Occipital Anterior Breech Presentation: N/A PLACENTA INFORMATION BABY A Placenta Delivery Time : 06/27/2019 17:05 Placenta Method of Delivery: Spontaneous Placenta Method of Delivery: Spontaneous Placenta Status: Delivered SCORES BABY A Heart Rate 1 min: >100 bpm Resp Effort 1 min: Good Cry Reflex Irritability 1 min: Cough or Sneeze or Pulls Away Muscle Tone 1 min: Active Motion Color 1 min: Body [place], Extremities Blue Resuscitation Effort 1 min: Tactile Stimulation SCORE 1 MIN: 9 Heart Rate 5 min: >100 bpm Resp Effort 5 min: Good Cry Reflex Irritability 5 min: Cough or Sneeze or Pulls Away Muscle Tone 5 min: Active Motion Color 5 min: Body [place], Extremities Blue Resuscitation Effort 5 min: N/A SCORE 5 MIN: 9 INFORMATION BABY A Gestational Age at Delivery: 41.1 Gestational Status: Late Term- 41- 41.6 Weeks Outcome : Liveborn Condition : Stable Sex: Female IDENTIFICATION BABY A Verification Date/Time: 06/27/2019 17:26 ID Band Number: [id number] Mother's Name Verified: Yes RN Verifying Infant: MMobley Additional Verifying Personnel: MJorge WEIGHT/LENGTH BABY A Infant Birthweight (gm): 3370 Infant Weight (lb): 7 Infant Weight (oz): 7 Length (in): 20.50 Length (cm): 52.07 CORD INFORMATION BABY A No. Cord Vessels: 3 Nuchal Cord : N/A Cord Blood Taken: Yes-For Eval (Mom's Blood Type - or O+) Suction: None ASSESSMENT BABY A Complications: None Physical Findings at Delivery: Within Normal Limits Respirations: Appears Normal Skin to Skin: Yes Fiber Optic Central Office Installer/ALS Called : No Care By: Rebecca Mayracherryviolette, RN Transferred To: Remains with Mother BABY B INFORMATION : N/A SIGNATURES Signature: with User ID: [email or web address] : I was personally available for consultation and serving as supervising physician for the MLP.
--- NOTE | 2019-06-30 10:27 | Admission Physical ---
Datetime Report Generated by CPN: 06/30/2019 10:27 CURRENT ADMISSION Chief Complaint: Scheduled Induction of Labor Chief Complaint: Scheduled Induction of Labor Chief Complaint: Scheduled Induction of Labor Indication for Induction: Post Dates Indication for Induction: Postterm Admit Impression : No Active Labor Admit Impression : Term, Intrauterine ; No Active Labor; Intact Membranes; Induction of Labor Admit Plan: Admit to Unit; Initiate Labor Induction Protocol Admit Plan: Admit to Unit; Initiate Labor Induction Protocol ALLERGIES Medication Allergies: No Medication Allergies: No Known Allergies (06/27/2019) Medication Allergies: No Known Allergies (06/15/2019) Medication Allergies: No Known Allergies (02/09/2019) Medication Allergies: No Known Allergies (01/21/2019) Latex: No Latex Allergies Food Allergies: none Environmental Allergies: none OBSTETRICAL HISTORY EDC: 06/19/2019 00:00 : 3 Para: 1 Term: 1 : 0 SAB: 1 IAB: 0 Ectopic: 0 Livin Cesareans: 0 VBACs: 0 Multiple Births: 0 Gestational Diabetes: No Rh Sensitization: No Incompetent Cervix: No BOAZ: No Infertility: No ART Treatment: No Uterine Anomaly: No IUGR: No Hx Previous C/S: No Macrosomia: No Hx Loss/Stillborn: No PIH: No Hx : No Placenta Previa/Abruption: No Depression/PP Depression: No PTL/PROM: No Post Hemorrhage: No Current Procedures: Ultrasound; NST Obstetrical History Comments: g1 - EAB 12 weeks g2 - 11/02/2015 40 weeks male epidural SEE RECORDS Alcohol: No Marijuana : No Cocaine: No Other Illicit Drugs: No Cigarettes: Former Smoker. 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 Heart Disease: No Hosp/Surgery: Yes Autoimmune Disorder: No Anesthetic Complications: No Kidney Disease: No Abnormal Pap Smear: No Neuro/Epilepsy: No Psychiatric Disorders: No Other Medical Diseases: No Hepatitis/Liver Disease: No Significant Family History: No Varicosities/Phlebitis: No Trauma/Violence : No Thyroid Dysfunction: No Medical History Comments: lymphnode removed R groin, childbirth INFECTIOUS HISTORY Gonorrhea: No Genital Herpes: No Chlamydia: No Tuberculosis: No Syphilis: No Hepatitis: No HIV/AIDS Exposure: No Rash or Viral Illness: No HPV: No PHYSICAL EXAM General: Normal General: Normal General: Normal HEENT: Deferred HEENT: Normal HEENT: Normal Neurologic: Normal Neurologic: Normal Neurologic: Normal Thyroid: Deferred Thyroid: Deferred Thyroid: Deferred Heart: Normal Heart: Normal Heart: Normal Lungs: Normal Lungs: Normal Lungs: Normal Breast: Deferred Breast: Deferred Breast: Deferred Back: Deferred Back: Normal Back: Normal Abdomen: Normal Abdomen: Normal Abdomen: Normal Genitourinary Exam: Normal Genitourinary Exam: Normal Genitourinary Exam: Normal Extremities: Deferred Extremities: Normal Extremities: Normal DTRs: Normal DTRs: Normal DTRs: Normal Pelvic Type: Adequate Pelvic Type: Adequate Pelvic Type: Adequate Physical Exam Comments: Exam per Dr. Yuen Vital Signs: Reviewed Vital Signs: Reviewed Vital Signs: Reviewed VAGINAL EXAM Dilatation: 3 Effacement: 70 Station: -1 Contraction Comments: irreg MEMBRANES Membranes: Intact Membranes: Intact FETUS A EGA: 41.1 EGA: 41.0 EGA: 40.6 Monitoring: External US Monitoring: External US Monitoring: External US FHR- Baseline: 130 FHR- Baseline: 125 Variability: Moderate 6-25bpm Variability: Moderate 6-25bpm Accelerations: 15X15 Accelerations: 15X15 Accelerations: 15X15 Decelerations: None Decelerations: None FHR Category: Category I FHR Category: Category I FHR Category: Category I Presentation: Vertex Presentation: Vertex Admit Comment: 24yo at 41+0ega (h/o EAB, h/o 7#13oz) here for postop [id number] induction. GBS positive. EFW 6#1oz (11%) on 06/05/2019. PCN for GBS prophy. RH negative. Admit to floor for now then when available space on labor and delivery plan for pitocin. PLANS FOR LABOR AND DELIVERY Labor and Delivery: None Pain Management: Epidural Feeding Preference: Breast Benefit of Breast Feed Discussed: Yes Circumcision: N/A INFORMED CONSENT Informed Consent Obtained: Vaginal Delivery; Induction of Labor; Risks, Benefits and Alternatives Discussed Assignment: Mo Yuen MD Signature: with User ID: Brenda Signature: with User ID: Arnold : with User ID: Brenda : with User ID: Arnold
== END 2019-06-29 13:04 | disposition home or self-care (01) | DRG 807 ==
LOC: LR 06:44 → 2S 20:15
PROVIDERS: ADMIT Obstetrics & Gynecology Gynecology; ATTEND Obstetrics & Gynecology Gynecology
PROC: 10E0XZZ Delivery of Products of Conception, External Approach (ICD-10-PCS; principal; 2019-06-27)
PROC: 3E033VJ Introduction of Other Hormone into Peripheral Vein, Percutaneous Approach (ICD-10-PCS; 2019-06-27)
PROC: 10907ZC Drainage of Amniotic Fluid, Therapeutic from Products of Conception, Via Natural or Artificial Opening (ICD-10-PCS; 2019-06-27)
PROC: 3E0334Z Introduction of Serum, Toxoid and Vaccine into Peripheral Vein, Percutaneous Approach (ICD-10-PCS; 2019-06-28)
DX: O48.0 Post-term pregnancy (principal); Z37.0 Single live birth; O99.824 Streptococcus B carrier state complicating childbirth; Z3A.41 41 weeks gestation of pregnancy
CPT/HCPCS: 36415; 80307; 81005; 85025; 85027; 85461; 86592; 86850; 86870; 86900; 86901; 94760; J2540; J2590; J2790; J3010; J3490; J7060

== ENCOUNTER 2020-05-10 08:18 | Emergency (ER) | payer MEDICAID ==
[2020-05-10 08:23] VITALS: BP 142/79
[2020-05-10 09:30] LABS: ABSOLUTE BASOPHILS # (AUTO) 0.1 10^3/uL (0.0-0.2); ABSOLUTE EOSINOPHILS # (AUTO) 0.1 10^3/uL (0.0-0.6); ABSOLUTE LYMPHOCYTES (AUTO) 2.3 10^3/uL (0.5-4.7); ABSOLUTE MONOCYTES (AUTO) 0.6 10^3/uL (0.1-1.4); ABSOLUTE NEUT (AUTO) 6.2 10^3/uL (1.7-8.2); BASOPHILS % (AUTO) 0.8 % (0-2); EOSINOPHILS % (AUTO) 1.4 % (0-6); HEMATOCRIT 41.8 % (36.0-47.0); HEMOGLOBIN 14.2 g/dL (12.0-15.5); LYMPHOCYTES % (AUTO) 24.7 % (13-45); MEAN CORPUSCULAR HGB CONC 33.9 g/dL (32.0-36.0); MEAN CORPUSCULAR VOLUME 86 fl (80-97); MONOCYTES % (AUTO) 6.5 % (3-13); PLATELET COUNT 224 10^3/uL (150-450); RED BLOOD COUNT 4.89 10^6/uL (3.72-5.28); RED CELL DISTRIBUTION WIDTH 14.3 % (11.5-14.0); SEGMENTED NEUTROPHILS % (AUTO) 66.6 % (42-78); TOTAL CELLS COUNTED % (AUTO) 100 %; WHITE BLOOD COUNT 9.2 10^3/uL (4.0-10.5)
[2020-05-10 09:50] LABS: BACTERIA (WET MOUNT) 4+ BACTERIA SEEN; EPITHELIALS (WET MOUNT) 4+ EPITHELIALS SEEN; RBCS (WET MOUNT) RARE RBCS SEEN; T.VAGINALIS (WET MOUNT) NO TRICHOMONAS SEEN; WBCS (WET MOUNT) 3+ WBCS SEEN; YEAST (WET MOUNT) NO YEAST SEEN
[2020-05-10 09:52] LABS: ALBUMIN 4.7 g/dL (3.5-5.0); ALKALINE PHOSPHATASE 93 U/L (38-126); ANION GAP 10 (5-19); ASPARTATE AMINO TRANSFERASE 19 U/L (14-36); BILIRUBIN,DIRECT 0.1 mg/dL (0.0-0.4); BILIRUBIN,TOTAL 0.6 mg/dL (0.2-1.3); BLOOD UREA NITROGEN 9 mg/dL (7-20); CALCIUM 9.5 mg/dL (8.4-10.2); CARBON DIOXIDE 24 mmol/L (22-30); CHLORIDE 107 mmol/L (98-107); GLUCOSE 93 mg/dL (75-110); POTASSIUM 4.2 mmol/L (3.6-5.0); TOTAL PROTEIN 8.4 g/dL (6.3-8.2)
[2020-05-10 10:30] LABS: APPEARANCE,URINE CLEAR; BILIRUBIN,URINE NEGATIVE (NEGATIVE); COLOR,URINE YELLOW; GLUCOSE, URINE NEGATIVE (NEGATIVE); KETONES,URINE NEGATIVE (NEGATIVE); LEUKOCYTE ESTERASE,URINE NEGATIVE (NEGATIVE); NITRITE,URINE NEGATIVE (NEGATIVE); PROTEIN,URINE NEGATIVE (NEGATIVE); URINE SPECIFIC GRAVITY 1.019; UROBILINOGEN,URINE NEGATIVE mg/dL (<2.0)
--- NOTE | 2020-05-10 10:58 | ER Document Report ---
ED General - General Chief Complaint: Abdominal Pain Stated Complaint: PELVIC PAIN Time Seen by Provider: 05/10/20 08:51 Mode of Arrival: Ambulatory Information source: Patient TRAVEL OUTSIDE OF THE [place] IN LAST 30 DAYS: No - HPI Notes: Patient reports she had an IUD inserted at a women's health clinic not affiliated with this facility about a month ago. She has had an IUD in the past a couple of times and has had problems with pain and spontaneous expulsion. Over the past week she has begun having cramping and stabbing pain in the pelvis radiating towards her low back. She denies any fever or chills. She denies any vaginal discharge or spotting. She denies and is not sexually active at this time. She has no concerns about STIs. She is here this morning requesting evaluation and removal of her IUD. She called the women's clinic that she saw for its insertion and they suggested that she come in for an appointment but she says she chose to come to the emergency department because our wait times are actually less than theirs. She is otherwise in her usual state of health. - Related Data Allergies/Adverse Reactions: No Known Allergies Allergy (Verified 06/27/19 06:52) Past Medical History - General Information source: Patient - Social History Smoking Status: Current Every Day Smoker Chew tobacco use (# tins/day): No Frequency of alcohol use: Rare Drug Abuse: None Family History: Reviewed & Not Pertinent - Medical History Medical History: Other Notes: Past medical history as documented in electronic health record is reviewed. Review of Systems - Review of Systems Notes: All other systems are reviewed and negative or noncontributory except as noted in the present illness. Physical Exam - Vital signs Vitals: Temp Pulse Resp BP Pulse Ox 98.0 F 106 H 18 142/79 H 100 05/10/20 08:22 05/10/20 08:22 05/10/20 08:22 05/10/20 08:22 05/10/20 08:22 - Notes Notes: General: Well-developed well-nourished female seated on the bed no acute distress. Vital signs and nursing chief complaint are reviewed. Lungs: Clear to auscultation all schrader. Heart: Regular rate and rhythm no murmur. Abdomen: Soft, nontender, nondistended, no masses, organomegaly, or rigidity noted. There is no guarding. Pelvic: Pelvic was done with Adenike RN as bag machine helper. Patient has a normal perineum and external genitalia. Speculum exam revealed some whitish discharge. IUD strings were visible in cervical os. Per the patient's request using ring forceps I was able to extract and remove her IUD completely with no complicat ions at all. Wet prep, GC and Chlamydia probes were obtained. Bimanual exam revealed a mobile nontender cervix. The patient had no adnexal masses or tenderness. Rectal exam was not done. Course - Re-evaluation Re-evalutation: 05/10/20 10:56 Patient rested comfortably throughout her stay. She had requested discharge by 11:00 so that she can make it work on time. I reviewed her labs with her. Her CBC, CHEM panel, urinalysis, and test are all normal. GC and chlamydia are pending. I will call her with those results this afternoon she gave me her permission to do so. I advised the patient that she was no longer protected against and should use another method of contraception if she chose to be sexually active. We also discussed danger signs and reasons to return. I emphasized that if she had increasing pelvic pain, with or without fever, with or without vaginal discharge or bleeding, she should either seek reevaluation at the wound center or return here for reevaluation. - Vital Signs Vital signs: Temp Pulse Resp BP Pulse Ox 98.0 F 106 H 18 142/79 H 100 05/10/20 08:22 05/10/20 08:22 05/10/20 08:22 05/10/20 08:22 05/10/20 08:22 - Laboratory Results Result Diagrams: 05/10/20 09:22 05/10/20 09:22 Laboratory Results Interpreted: 05/10/20 05/10/20 09:22 09:22 RDW 14.3 H Total Protein 8.4 H Critical Laboratory Results Reviewed: No Critical Results - Radiology Results Critical Radiology Results Reviewed: No Critical Results Discharge - Discharge Clinical Impression: Pelvic pain IUD complication Qualifiers: Device complication type: unspecified Encounter type: initial encounter Qualified Code(s): T83.9XXA - Unspecified complication of genitourinary prosthetic device, implant and graft, initial encounter Condition: Good Disposition: HOME, SELF-CARE Instructions: Pelvic Pain ([facility]) Additional Instructions: If your symptoms worsen, and you develop pelvic pain without fever, or vaginal bleeding or discharge, you should return here or go to the [facility] for evaluation immediately. Your IUD has been removed. You were no longer protected against . If you choose to become sexually active and do not wish to become you should use an alternate method of control. We will call you with the remainder of your lab results as soon as they are available. Return to the emergency department if any other concerning symptoms develop.
[2020-05-10 11:20] LABS: CHLAM PCR NOT DETECTED (NOT DETECT)
== END 2020-05-10 11:06 | disposition home or self-care (01) ==
LOC: ER 08:18
DX: R10.9 Unspecified abdominal pain (principal); R10.2 Pelvic and perineal pain; T83.9XXA Unspecified complication of genitourinary prosthetic device, implant and graft, initial encounter; F17.200 Nicotine dependence, unspecified, uncomplicated
CPT/HCPCS: 36415; 80053; 81001; 81025; 83690; 85025; 87210; 87491; 87591; 99283